=== PATIENT | male | born 1995 | race Caucasian/White ===

== ENCOUNTER 2018-03-14 19:14 | Inpatient (IN) | payer BC, OTHER ==
[~2018-03-14] VITALS: Ht 185.4 cm; Wt 90.7 kg
--- NOTE | 2018-03-15 15:20 | NUR ---
PRE-ADMISSION Pt is a 22 yr old male, AA&Ox4. Pt is presenting himself to [facility] for heroin and meth use. Pt is noted with anxiety m/b restless legs and appears to be fearful. VS are 144/83, P 90, R 18, T 98.2, O2 98% and pt is c/o generalized body aches 02/01. Pt was seen by Dr. Dominique. Pt will be admitted to the 3rd unit. Will continue to f/u.
[2018-03-15 15:26] VITALS: BP 144/83
[2018-03-15] MEDS ORDERED: NICOTINE 14 MG/24HR PATCH TD PRN (15:30)
[2018-03-15] MEDS ORDERED: BUPRENORPHINE HCL 2 MG TAB.SUBL SL PRN (15:30)
[2018-03-15] MEDS ORDERED: LOPERAMIDE HCL 2 MG CAPSULE PO PRN ×2 (15:30)
[2018-03-15] MEDS ORDERED: CLONIDINE HCL 0.1 MG TABLET PO PRN (15:30)
[2018-03-15] MEDS ORDERED: LORAZEPAM 1 MG TABLET PO PRN (15:30)
[2018-03-15] MEDS ORDERED: ACETAMINOPHEN 325 MG TABLET PO PRN (15:30)
[2018-03-15] MEDS ORDERED: NEOMY/BACITRAC/POLYMI OINT 28.35 GM TUBE TOP PRN (15:30)
[2018-03-15] MEDS ORDERED: MIRALAX 17 GM POWD.PACK PO PRN (15:30)
[2018-03-15] MEDS ORDERED: ONDANSETRON ODT 4 MG TAB.RAPDIS SL PRN (15:30)
[2018-03-15] MEDS ORDERED: MAG HYDROX/AL HYDROX/SIMETH 30 ML LIQUID UDC PO PRN (15:30)
[2018-03-15] MEDS ORDERED: HYDROXYZINE PAMOATE 25 MG CAPSULE PO PRN (15:30)
[2018-03-15] MEDS ORDERED: diphenhydrAMINE 50 MG CAPSULE PO PRN (15:30)
[2018-03-15] MEDS ORDERED: ONDANSETRON 4 MG/2 ML VIAL IM PRN (15:30)
[2018-03-15] MEDS ORDERED: NICOTINE POLACRILEX 4 MG GUM-PK OF TEN BC PRN (15:30)
[2018-03-15] MEDS ORDERED: TRAZ-147 PO (15:38)
[2018-03-15] MEDS ORDERED: ESCI10TA PO (15:38)
[2018-03-15 16:20] VITALS: BP 133/78
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
[2018-03-15 16:48] LABS: BASOPHILS % (AUTO) 0.3 % (0.0-2.0); EOSINOPHILS # (AUTO) 0.1 K/uL (0.0-0.7); EOSINOPHILS % (AUTO) 1.4 % (0.0-7.0); HEMATOCRIT 37.1 % (36.7-47.1); HEMOGLOBIN 12.9 g/dL (12.5-16.3); LYMPHOCYTES # (AUTO) 1.9 K/uL (20.0-40.0); LYMPHOCYTES % (AUTO) 34.9 % (20.5-51.5); MEAN CORPUSCULAR HEMOGLOBIN 30.4 uug (23.8-33.4); MEAN CORPUSCULAR HGB CONC 35 g/dL (32.5-36.3); MEAN CORPUSCULAR VOLUME 87.3 fL (73.0-96.2); MONOCYTES # (AUTO) 0.6 K/uL (2.0-10.0); MONOCYTES % (AUTO) 11.5 % (0.0-11.0); NEUTROPHILS # (AUTO) 2.8 K/uL (1.8-8.9); NEUTROPHILS % (AUTO) 51.9 % (38.5-71.5); PLATELET COUNT (AUTO) 230 K/uL (152-348); RED BLOOD CELL COUNT(AUTO) 4.25 MIL/uL (4.06-5.63); WHITE BLOOD COUNT (AUTO) 5.3 K/uL (3.6-10.2)
[2018-03-15 17:03] LABS: ETHANOL < 3 MG/DL (0-0)
[2018-03-15 17:06] LABS: ALANINE AMINOTRANSFERASE 53 U/L (16-63); ALKALINE PHOSPHATASE 82 U/L (50-136); ASPARTATE AMINOTRANSFERASE 33 U/L (15-37); BILIRUBIN,TOTAL 0.4 mg/dL (0.2-1.0); CARBON DIOXIDE 28 mmol/L (21-32); CHLORIDE 107 mmol/L (98-107); GLUCOSE 124 mg/dL (74-106); MAGNESIUM 1.9 mg/dL (1.8-2.4); POTASSIUM 3.6 mmol/L (3.5-5.1); TOTAL PROTEIN, SERUM 7.3 g/dL (6.4-8.2); UREA NITROGEN, BLOOD 12 mg/dL (7-18)
--- NOTE | 2018-03-15 19:21 | NUR ---
END OF SHIFT Pt is a 22 yr old male, AA&Ox4. pt is a new admit to [facility] for heroin and meth withdrawal and is to start on 5 day Subutex taper tonight. No PRN's were given during the day. Last COWS score was 9 at 1620. Pt is currently in bed sleeping with respirations even and unlabored. Skin is intact, warm and moist to touch. Safety precautions observed. Call light is within reach.
--- NOTE | 2018-03-15 19:30 | NUR ---
Start of Shift Note: Received patient from day shift nurse. Patient is a 22 y.o male admitted today 03/15/18 for medically supervised withdrawal from Heroin & Meth use. Patient received in bed with eyes closed. Patient appears disheveled and unkempt, pt noted in bed while his shoes were still on. Patient appears sedated, he is hard to arouse, does not respond to questions. Dinner tray noted at bedside table and untouched. Vitals taken and noted WNL. Skin color WNL and noted to be moist/clammy. Pt was placed on a Sbutex taper to be started tonight. Last COWS 9. No PRN medications given during day shift. Pt stable at this time. Will continue to closely monitor patient.
[2018-03-15 20:00] VITALS: BP 133/79
[2018-03-15] MEDS ORDERED: LORAZEPAM 1 MG TABLET PO SCH (21:00)
[2018-03-15] MEDS ORDERED: BUPRENORPHINE HCL 2 MG TAB.SUBL SL SCH (21:00)
[2018-03-16] VITALS: BP 105/66
--- NOTE | 2018-03-16 | NUR ---
COWS/CIWA deferred Patient is asleep. Vitals taken and noted WNL. Unable to assess COWS/CIWA scores at this time. Pt stable. Safety measures in place. Will continue to monitor. Addendum: 03/16/18 at 0714 by SIDDHARTH RAMOS RN Monitor COWS scores not CIWA
--- NOTE | 2018-03-16 | NUR ---
COWSdeferred Patient is asleep. Vitals taken and noted WNL. Unable to assess COWS scores at this time. Pt stable. Safety measures in place. Will continue to monitor.
[2018-03-16 04:00] VITALS: BP 108/54
--- NOTE | 2018-03-16 07:09 | NUR ---
End of Shift Note Patient is a 22 y.o male admitted yesterday 03/15/18 for medically supervised withdrawal from Opiates & Meth. Patient stable at this time. Patient has been asleep the whole night. Subutex taper hasnt started yet. Pt did not received scheduled medications and PRNs d/t pt was hard to arouse and appears sedated. Pt is closely monitored for s/s of withdrawal. Vitals noted WNL. Pt still asleep in bed at this time. Respiration even & unlabored. Pt only drank 200ml of fluids, Voided once with no bowel movement noted. Pt slept for a total of 12 hours. All needs were attended. Safety measures in place. Will endorse pt to day shift nurse.
--- NOTE | 2018-03-16 07:30 | NUR ---
START OF SHIFT Pt is a 22 yr old male, AA&Ox4. Pt was admitted on 03/15/18 for heroin and meth withdrawal and is on a 5 day Subutex taper as ordered. Received report from shift lab technician. No PRN's were given during the night. Pt slept for 12 hrs and was not able to be assessed for COWS score during the night. Pt remains in bed sleeping with respiration even and unlabored. Pt is noted with facial sweats. Skin is warm and moist to touch and noted with goose flesh. Pt's finger nails and hands remain dirty. Safety precautions observed. Call light is within reach. Will continue to monitor.
[2018-03-16 08:12] VITALS: BP 128/84
[2018-03-16] MEDS ORDERED: TUBERCULIN,PURIF.PROT.DERIV. 5 TU/0.1 ML TEST ID ONE (09:00)
[2018-03-16] MEDS: ESCITALOPRAM OXALATE 10 MG TABLET PO SCH (09:45)
[2018-03-16] MEDS ORDERED: TRAZODONE 100 MG TABLET PO PRN (09:45)
[2018-03-16] MEDS: BUPRENORPHINE HCL 2 MG TAB.SUBL SL SCH ×3 (10:00→20:38)
--- NOTE | 2018-03-16 10:36 | NUR ---
MEDICATION REFUSED Pt refused to take Subutex 4mg SL, Lexapro 10mg PO and TB skin test scheduled at 0900. Pt is noted with restlessness, sweats and goose flesh. Pt was educate by both nurse and by Dr. Dominique on the importance of medication regimen but pt continued to refused stating "I'm not ready". Will continue to monitor.
[2018-03-16] MEDS: DICYCLOMINE HCL 20 MG TABLET PO PRN ×2 (11:25→20:38)
[2018-03-16] MEDS: METHOCARBAMOL 750 MG TABLET PO PRN ×2 (11:25→20:38)
[2018-03-16] MEDS: IBUPROFEN 600 MG TABLET PO PRN (11:25)
--- NOTE | 2018-03-16 11:25 | NUR ---
PRN GIVEN Pt was c/o increase anxiety. pt was noted with restless legs, sweats and goose flesh. Pt is c.o generalize body aches and abdominal cramping. COWS score was 15. Pt received Subutex 4mg SL PRN, Motrin 600mg PO PRN, Robaxin 750mg PO PRN, and Bentyl 20mg PO PRN was given as ordered for s/s of w/d. Medication was bella well. Encouraged increase fluid intake for hydration. Will continue to monitor.
[2018-03-16 11:48] LABS: *AMPHETAMINE, URINE POSITIVE (NEGATIVE); *BARBITURATE, URINE NEGATIVE (NEGATIVE); *CANNABINOID, URINE POSITIVE (NEGATIVE); *COCCAINE, URINE NEGATIVE (NEGATIVE); *OPIATE, URINE POSITIVE (NEGATIVE); *PHENCYCLIDINE SCREEN,URINE NEGATIVE (NEGATIVE)
[2018-03-16 12:00] VITALS: BP 127/73
--- NOTE | 2018-03-16 12:00 | NUR ---
PRN RE-ASSESSMENT Subutex 4mg SL PRN, Motrin 600mg PO PRN, Robaxin 750mg PO PRN and Bentyl 20mg PO PRN was mildly effective. Pt continues to state he feels "like shit". Pt denies any stomach aches. Pt continues to c/o body aches but states the medication was mildly effective. COWS score was 11. Encouraged increase fluids for hydration. Will continue to monitor.
[2018-03-16 16:00] VITALS: BP 122/71
--- NOTE | 2018-03-16 18:52 | NUR ---
END OF SHIFT Pt is a 22 yr old male, AA&Ox4. Pt was admitted on 03/15/18 for heroin and meth withdrawal and is on a 5 day Subutex taper as ordered. Pt has been noted with increase anxiety m/b difficulty staying still. Pt c/o generalized body aches, sweats, chills and abdominal cramping. Pt received Bentyl 20mg PO PRN, Motrin 600mg PO PRN, Robaxin 750mg PO PRN and Subutex 4mg SL PRN at 1125. Medication was effective. Pt was encouraged increase fluid intake for hydration. Pt appearance was noted disheveled and odorous. Pt did take a shower a shower in the late afternoon. Last COWS score was 13 at 1600. Safety precautions observed. Call light is within reach.
--- NOTE | 2018-03-16 19:30 | NUR ---
START OF SHIFT Pt is a 22 yr old male,A/A/O X 3, admitted on 03/15/18 for heroin and meth withdrawal.Pt continues to be on Subutex taper as ordered and has been tolerating well.Pt noted with increase anxiety,appears anxious.restless,c/o generalized body aches, sweats, chills and abdominal cramping. Pt received PRN Bentyl , Motrin, Robaxin and Subutex 4mg during the day and was effective.Pt encouraged increase fluid intake. Last COWS score was 13 at 1600. Safety precautions observed. Call light is within reach.Will continue to monitor.
[2018-03-16 20:00] VITALS: BP 131/80
--- NOTE | 2018-03-16 20:40 | NUR ---
PRN MEDS PT C/O ANXIETY,CHILLS.MUSCLE AND ABDOMINAL PAIN.PRN CLONIDINE,ROBAXIN AND BENTYL GIVEN ORDERED RESPECTIVELY.WILL MONITOR FOR EFFECTIVENESS.
--- NOTE | 2018-03-16 21:40 | NUR ---
PRN F/U PRN MEDS GIVEN EARLIER ARE MODERATELY EFFECTIVE.PT IS STILL ANXIOUS,LOOKS SLEEPY BUT RESTLESS.PRN MED OFFERED FOR INSOMNIA BUT PT REFUSED TO TAKE IT,STATED IT DOES NOT WORK.SEEN LYING IN BED.WILL CONTINUE TO MONITOR.
--- NOTE | 2018-03-17 | NUR ---
COWS/CIWA deferred/V/S refused. Patient is asleep.Refused V/S. Unable to assess COWS/CIWA at this time. Safety measures in place. Will continue to monitor.
[2018-03-17] MEDS: MAGNESIUM HYDROXIDE 30 ML LIQUID UDC PO PRN (02:39)
--- NOTE | 2018-03-17 02:42 | NUR ---
PRN MED PT C/O ABDOMINAL PAIN,STATED THAT HE HAS NOT HAD A BOWEL MOVEMENT FOR 4 DAYS.PRN MOM GIVEN ORDERED.PO FLUIDS ENCOURAGED.WILL MONITOR.
[2018-03-17] MEDS ORDERED: KETOROLAC TROMETHAMINE 30 MG INJ IM ONE (02:45)
--- NOTE | 2018-03-17 02:56 | NUR ---
TORADOL IM ONE TIME ORDER-- PT CONTINUES TO C/O ABDOMINAL PAIN,MOANING IN PAIN,GRASPING PAIN SITE,PAIN LEVEL IS 10/10.PT REFUSED TO TAKE ANY PO PRN MEDICATIONS STATED THAT THEY DON'T HELP. NOTIFIED.TORADOL IM GIVEN ORDERED IN LEFT GLUTEAL MUSCLE.WILL CONTINUE TO MONITOR FOR EFFECTIVENESS.
--- NOTE | 2018-03-17 03:00 | NUR ---
PT IS RESTING IN BED WITH EYES CLOSED.TORADOL IM HAS BEEN EFFECTIVE IN DECREASING PAIN LEVEL.PAIN LEVEL IS 3/10.
--- NOTE | 2018-03-17 04:00 | NUR ---
COWS/CIWA deferred/V/S refused. Patient is asleep.Refused V/S. Unable to assess COWS/CIWA at this time. Safety measures in place. Will continue to monitor.
--- NOTE | 2018-03-17 06:48 | NUR ---
END OF SHIFT Pt is a 22 yr old male,A/O X 3, admitted on 03/15/18 for heroin and meth withdrawal.Pt continues to be on Subutex taper as ordered and has been tolerating well.Pt was noted with increase anxiety,appeared anxious.restless,c/o generalized body aches, sweats, chills and abdominal cramping. Pt received PRN Bentyl , Clonidine and Robaxin during the night and was effective.One time order of Toradol IM was given for abdominal pain with moderate effect.PRN MOM was given for constipation; result still pending. Pt encouraged to increase fluid intake.Pt slept 9 hrs,fluid intake was 1754 mls,voided x 4,no B/M. Last COWS score was 12. Safety precautions observed. Call light is within reach.Will continue to monitor.
--- NOTE | 2018-03-17 07:30 | NUR ---
START OF SHIFT Pt is a 22 yr old male, AA&Ox4. Pt was admitted on 03/15/18 for heroin and meth withdrawal and is on a 5 day Subutex taper as ordered. Received report from hourly shift manager. Pt c/o abdominal cramping during the night and received Bentyl PRN and Robaxin PRN, medication was not effective and received report Toradol IM PRN and MOM for constipation. Toradol PRN was effective. Pt slept for 9 hrs. Last COWS score was 12. No BM was reported. Pt remains in bed sleeping with respiration even and unlabored. Skin is warm and moist to touch. Safety precautions observed. Call light is within reach. Will continue to monitor.
[2018-03-17 08:00] VITALS: BP 116/80
[2018-03-17] MEDS: ESCITALOPRAM OXALATE 10 MG TABLET PO SCH (08:54)
[2018-03-17] MEDS: IBUPROFEN 600 MG TABLET PO PRN (08:54)
--- NOTE | 2018-03-17 08:54 | NUR ---
PRN GIVEN Pt c/o abdominal pain and lower back pain /. Facial grimacing is observed. Pt is noted with flat affect and avoidant. Pt requested not to take the Subutex at this time, pt states "I think the Subutex is making my stomach hurt". Bentyl 20mg PO PRN was offered but pt refused, stating "I don't want to take any more medications". Pt was educated on disease process and medication regimen. Pt is passive and need further education on medication regimen. Pt requested for Motrin. Motrin 600mg PO PRN was given at 0854 for pain 05/04. Encouraged increase fluid intake for hydration. Will continue to monitor.
[2018-03-17] MEDS ORDERED: BUPRENORPHINE HCL 2 MG TAB.SUBL SL SCH ×2 (09:00→15:00)
--- NOTE | 2018-03-17 09:38 | NUR ---
NSG NOTES Pt agreed to take Subutex 4mg SL as scheduled at 0900 but states he is fearful it would make him worse. Pt was educated on the importance of Subutex and the risk and benefits. Pt was able to verbalize understanding. Pt states of wanting to swallow the Subutex because he has "cotton mouth" and was observed drinking Dr. Farrell. Pt was encouraged to drink more water instead sugar drinks to help with hydration. Pt verbalizes understanding. Will continue to monitor.
--- NOTE | 2018-03-17 09:59 | NUR ---
PRN RE-ASSESSMENT Motrin 600mg PO PRN was mildly effective. Pt continue to c/o abdominal cramping and lower back pain but pain level subsided to 3/10. Facial grimacing is observe. Will continue to monitor.
[2018-03-17 12:00] VITALS: BP 99/57
[2018-03-17] MEDS ORDERED: KETOROLAC TROMETHAMINE 30 MG INJ IM PRN (12:15)
[2018-03-17 13:07] LABS: HEPATITIS B SURFACE AG Negative (Negative)
[2018-03-17] MEDS: BUPRENORPHINE HCL 2 MG TAB.SUBL SL SCH ×4 (13:08→22:37)
[2018-03-17] MEDS: DICYCLOMINE HCL 20 MG TABLET PO SCH ×2 (14:27→22:07)
[2018-03-17 16:00] VITALS: BP 111/60
--- NOTE | 2018-03-17 17:05 | NUR ---
NSG NOTES/PRN GIVEN/MEDICATION REFUSED Pt was observed scratching profusely throughout his body and his skin was noted red. Pt states of feeling itchy after getting Subutex but states he is able to tolerate Subutex. Vistaril 25mg PO PRN was given for anxiety/itchiness. Pt also refused to take Subutex 2mg SL as scheduled at 1700 stating he will take the 2100 dose. Risks and benefits was explained. Pt was passive and needs further education on medication regimen. Dr. Dominique was made aware.
--- NOTE | 2018-03-17 18:05 | NUR ---
PRN RE-ASSESSMENT Vistaril 25mg PO PRN was effective. Pt is currently in bed resting wtih respirations even and unlabored. Pt is not observed scratching. Will continue to monitor.
--- NOTE | 2018-03-17 19:02 | NUR ---
END OF SHIFT Pt is a 22 yr old male, AA&Ox4. Pt was admitted on 03/15/18 for heroin and meth withdrawal and is on a 5 day Subutex taper as ordered. Pt has been noted with increase anxiety m/b difficulty staying still. Pt was noted with facial sweats. Pt was observed scratching profusely throughout his body and was noted red. Pt states of feeling itchy after getting Subutex but states he is able to tolerate Subutex. Vistaril 25mg PO PRN was given for anxiety/itchiness, medication was effective. Dr. Dominique was made aware. Pt also refused to take Subutex 2mg SL as scheduled at 1700. Pt received Motrin 600mg PO PRN for lower back pain and abdominal cramping, medication was effective. Pt was encouraged increase fluid intake for hydration. Last COWS score was 11 at 1600. Safety precautions observed. Call light is within reach.
--- NOTE | 2018-03-17 19:30 | NUR ---
START OF SHIFT Pt is a 22 yr old male, AA&Ox4. Pt was admitted on 03/15/18 for heroin and meth withdrawal and is on Subutex taper as ordered.Pt received lying in bed,lethargic,dishevelled and unkempt,noted to be sleeping intermittently and scratching himself.Pt encouraged to get up and shower and use lotion,but is does not want to,stated "I took a shower yesterday,I am itching because of Subutex". Vistaril 25mg PO PRN was given for anxiety/itchiness, medication was effective. Dr. Dominique was made aware. Pt also refused to take Subutex 2mg SL as scheduled at 1700. Pt received Motrin 600mg PO PRN for lower back pain and abdominal cramping, medication was effective. Pt encouraged increase fluid intake for hydration. Last COWS score was 11 at 1600. Safety precautions observed. Call light is within reach.Will continue to monitor.
[2018-03-17 20:00] VITALS: BP 111/50
[2018-03-17] MEDS ORDERED: diphenhydrAMINE 25 MG CAP PO PRN (21:00)
[2018-03-17] MEDS: GABAPENTIN 300 MG CAPSULE PO SCH (22:07)
[2018-03-17] MEDS: BACLOFEN 10 MG TABLET PO SCH (22:07)
[2018-03-17] MEDS: CLONIDINE HCL 0.1 MG TABLET PO SCH (22:10)
[2018-03-18] VITALS: BP 115/67
[2018-03-18 04:00] VITALS: BP 131/77
--- NOTE | 2018-03-18 06:49 | NUR ---
END OF SHIFT Pt is a 22 yr old male, A&Ox4. Pt was admitted on 03/15/18 for heroin and meth withdrawal and is on Subutex taper as ordered.Pt has been sleeping most of time, he slept 10 hrs , fluid intake was 1375 mls, voided x 2.Pt c/o back pain but refused to take any pain medication when offered. Said that he just wants to sleep.At first he refused to take Subutex at 2100,said that it makes him itch but finally ended taking it.PO fluids encouraged. Last COWS score was 7 at 0400. Safety precautions observed. Call light is within reach.Will continue to monitor.
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
[2018-03-18 08:22] VITALS: BP 148/94
[2018-03-18] MEDS: ESCITALOPRAM OXALATE 10 MG TABLET PO SCH (09:58)
[2018-03-18] MEDS: BUPRENORPHINE HCL 2 MG TAB.SUBL SL SCH ×3 (09:58→22:40)
[2018-03-18] MEDS: GABAPENTIN 300 MG CAPSULE PO SCH ×3 (09:59→22:40)
[2018-03-18] MEDS: DICYCLOMINE HCL 20 MG TABLET PO SCH ×3 (09:59→22:38)
[2018-03-18] MEDS: CLONIDINE HCL 0.1 MG TABLET PO SCH ×3 (09:59→22:39)
[2018-03-18] MEDS: BACLOFEN 10 MG TABLET PO SCH ×3 (09:59→22:40)
[2018-03-18 12:26] VITALS: BP 109/57
[2018-03-18 16:55] VITALS: BP 129/74
[2018-03-18] MEDS: IBUPROFEN 600 MG TABLET PO PRN (17:17)
--- NOTE | 2018-03-18 17:17 | NUR ---
PRN Motrin Pt complain of tooth ache pain 5/10 and requests Motrin for pain relief. Fixture Fabricator Repairer administered medication per order and pt tolerated well. Will continue to monitor, support and encourage according to plan of care.
--- NOTE | 2018-03-18 18:17 | NUR ---
PRN Re-Assessment Pt resting with eyes closed, even and unlabored respirations. Will continue to monitor, support and encourage according to plan of care.
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
--- NOTE | 2018-03-18 19:30 | NUR ---
START OF SHIFT Received 22 year old male patient admitted on 03/15/18 for Heroin and Methamphetamine withdrawal. Pt is alert and oriented x4. Pt noted to be withdrawn and isolated to his room. Pt is disheveled, unkempt and odorous. His room is odorous with garbage around the room. He is noted with poor eye contact, irritability, and flat affect. He is receiving a 5 day Subutex taper and tolerating well. Per endorsement, he received PRN Motrin. Last COWS:8 at 1600. Breathing is even and unlabored, safety measures in place. Will continue to monitor.
[2018-03-18 20:07] VITALS: BP 116/62
--- NOTE | 2018-03-19 | NUR ---
VITALS REFUSED, COWS DEFERRED 0000 vitals refused. COWS deferred d/t pt lying in bed with eyes closed noted to be asleep. Breathing is even and unlabored, safety measures in place. Will monitor.
--- NOTE | 2018-03-19 04:00 | NUR ---
VITALS REFUSED, COWS DEFERRED 0400 vitals refused. COWS deferred d/t pt lying in bed with eyes closed noted to be asleep. Breathing is even and unlabored, safety measures in place. Will monitor.
--- NOTE | 2018-03-19 07:04 | NUR ---
START OF SHIFT Pt is a 22 year old male patient admitted on 03/15/18 for Heroin and Methamphetamine withdrawal. He remains alert and oriented x4. He was noted to be withdrawn and isolated to his room. He had complaints of anxiety, and irritability during the shift. He continues on a 5 day Subutex taper and tolerating well. He did not receive or request PRN medications. He slept a total of 8 hrs, Intake: 1,700mL, Void: x2, BM:0, COWS: 8 at 1999. Breathing is even and unlabored, safety measures in place. Will endorse to AM shift. Addendum: 03/19/18 at 0706 by ISABEL RICHARDS RN ERROR IN CHARTING
--- NOTE | 2018-03-19 07:06 | NUR ---
END OF SHIFT Pt is a 22 year old male patient admitted on 03/15/18 for Heroin and Methamphetamine withdrawal. He remains alert and oriented x4. He was noted to be withdrawn and isolated to his room. He had complaints of anxiety, and irritability during the shift. He continues on a 5 day Subutex taper and tolerating well. He did not receive or request PRN medications. He slept a total of 8 hrs, Intake: 1,700mL, Void: x2, BM:0, COWS: 8 at 2000. Breathing is even and unlabored, safety measures in place. Will endorse to AM shift.
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
[2018-03-19 08:30] VITALS: BP 114/50
[2018-03-19] MEDS: ESCITALOPRAM OXALATE 10 MG TABLET PO SCH (09:02)
[2018-03-19] MEDS: BUPRENORPHINE HCL 2 MG TAB.SUBL SL SCH ×2 (09:02→21:28)
[2018-03-19] MEDS: DICYCLOMINE HCL 20 MG TABLET PO SCH ×3 (09:02→21:28)
[2018-03-19] MEDS: BACLOFEN 10 MG TABLET PO SCH ×3 (09:02→21:28)
[2018-03-19] MEDS: CLONIDINE HCL 0.1 MG TABLET PO SCH ×3 (09:02→21:28)
[2018-03-19] MEDS: GABAPENTIN 300 MG CAPSULE PO SCH ×3 (09:02→21:28)
[2018-03-19 12:49] VITALS: BP 130/79
[2018-03-19] MEDS ORDERED: CLON0.1T14 PO (12:58)
[2018-03-19] MEDS ORDERED: HYDR-3895 PO (12:58)
[2018-03-19] MEDS ORDERED: DIPH25TA27 PO (12:58)
[2018-03-19] MEDS ORDERED: DICY20TA28 PO (12:58)
[2018-03-19] MEDS ORDERED: METH-406 PO (12:58)
[2018-03-19] MEDS ORDERED: GABA-534 PO (12:58)
[2018-03-19] MEDS ORDERED: IBUP-1955 PO (12:58)
[2018-03-19 16:58] VITALS: BP 108/68
[2018-03-19] MEDS: OLANZAPINE ZYDIS 5 MG TAB.RAPDIS PO SCH (17:00)
[2018-03-19] MEDS: DIVALPROEX SPRINKLE 125 MG CAP.SPRINK PO SCH (17:00)
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
--- NOTE | 2018-03-19 19:16 | NUR ---
Start of shift note Received report from day shift nurse. Pt is a 22 yo male, A+Ox4, presenting to [facility] for Opiate/Meth withdrawal. Pt noted to be anxious, restless, agitated, and having messy/odorous room/body. Pt is on 5 day Subutex taper, tolerated well. Pt has HX of ADHD, Anxiety, Depression, and back injury which will be monitored during shift. Respirations even and unlabored. Will continue to monitor.
[2018-03-19 20:10] VITALS: BP 137/82
[2018-03-20 00:17] VITALS: BP 132/84
[2018-03-20 04:39] VITALS: BP 129/87
--- NOTE | 2018-03-20 06:45 | NUR ---
End of shift note Pt was continuously noted to be anxious, withdrawn, having messy/odorous room/body, and restless. Pt is 5 day Subutex taper, tolerated well. Pt remained in room for majority of shift except to get food from kitchen and to go smoke on smoking patio. Pt was not given any PRN medications during shift. Pt slept for a total of 9 HRS. Last COWS: 9 @0400. Respirations even and unlabored. Will endorse to day shift nurse.
--- NOTE | 2018-03-20 07:49 | NUR ---
BEGINNING OF SHIFT Patient endorsement report received from nightclub manager nurse, all pertinent information discussed. Patient is a 22 year old male with admitting Dx: Opiate withdrawal. Patient is Currently under close observation, patient continues on Subutex taper as ordered. patient with last cow score of: 9. slept for 9 hours. Fall and seizure precautions observed at all times. Patient awake, alert and oriented x4, will educated regarding plan of care for the day, and medication regimen. Patient received No PRNs during nightclub manager. fall and seizure precautions observed and in place. will continue to monitor closely. safety measures in place.
[2018-03-20 08:03] VITALS: BP 106/64
[2018-03-20] MEDS ORDERED: BUPRENORPHINE HCL 2 MG TAB.SUBL SL SCH (09:00)
[2018-03-20] MEDS: DIVALPROEX SPRINKLE 125 MG CAP.SPRINK PO SCH ×2 (09:00→12:41)
[2018-03-20] MEDS: OLANZAPINE ZYDIS 5 MG TAB.RAPDIS PO SCH (09:00)
[2018-03-20] MEDS: CLONIDINE HCL 0.1 MG TABLET PO SCH ×3 (09:27→20:49)
[2018-03-20] MEDS: ESCITALOPRAM OXALATE 10 MG TABLET PO SCH (09:27)
[2018-03-20] MEDS: DICYCLOMINE HCL 20 MG TABLET PO SCH ×3 (09:27→20:49)
[2018-03-20] MEDS: GABAPENTIN 300 MG CAPSULE PO SCH ×3 (09:28→20:49)
[2018-03-20] MEDS: BACLOFEN 10 MG TABLET PO SCH ×3 (09:28→20:49)
[2018-03-20 12:58] VITALS: BP 131/71
[2018-03-20 17:28] VITALS: BP 118/77
--- NOTE | 2018-03-20 18:58 | NUR ---
END OF SHIFT Patient alert and oriented x4, monitored closely during shift. Patient has a worried, and anxious facial expression. Patient at times with increase anxiety, restlessness, and agitation, provided with calming reassurance as needed along with non pharmacological interventions as needed. Patient noted odorous, unshaven and disheveled, encouraged personal grooming and maintenance of personal space and self. Patient presented with: c/o chills, difficulty sitting still, enlarged pupils, bone and joint aches, moist eyes, abdominal cramps, tremors that can be felt, increase yawning, and anxiety, initial cow score of: 10, last cow score of: 7, detox medication effective at reducing withdrawal symptoms. Patient is scheduled to be discharged tomorrow morning, received last dose of Subutex during the day, well tolerated. Patient refusing Zyprexa and Depakote, psychiatrist was made aware, patient was explained risk vs benefits with good verbal understanding. Patient received no PRN medication during shift. Patient encouraged participation in therapy sessions, patient denies any SI/HI, Patient was encouraged to verbalize feelings, encouraged to develop coping skills and utilization of non pharmacological interventions. Patients safety measures are in place. call light kept within reach, will continue to monitor. Endorsed to rug inspector nurse, all pertinent information discussed.
--- NOTE | 2018-03-20 19:10 | NUR ---
Start of shift note Received report from day shift nurse. Pt is a 22 yo male, A+Ox4, presenting to [facility] for Opiate/Meth withdrawal. Pt noted to be anxious, agitated, restless, and having messy room. Pt has completed 5 day Subutex taper, tolerated well, and is due for discharger tomorrow. Pt has HX of ADHD, anxiety, depression, and back injury which will be monitored during shift. Respirations even and unlabored. Will continue to monitor.
[2018-03-20 20:23] VITALS: BP_SYST 127; BP_SYST 131; BP_DIAS 80; BP_DIAS 82
[2018-03-20] MEDS: DICYCLOMINE HCL 20 MG TABLET PO PRN (23:10)
[2018-03-20] MEDS: MAGNESIUM HYDROXIDE 30 ML LIQUID UDC PO PRN (23:12)
--- NOTE | 2018-03-20 23:12 | NUR ---
PRN Bentyl and MOM Pt c/o abdominal cramps and constipation and requested for PRN Bentyl and MOM. Medications given and tolerated well. Will reassess within 1 HR. Will continue to monitor.
--- NOTE | 2018-03-21 00:10 | NUR ---
PRN Bentyl and MOM Reassessment PRN Bentyl effective. Pt expresses reduction in abdominal cramping. Still awaiting effectiveness of MOM. No s/s of ASE noted at this time. Respirations even and unlabored. Will continue to monitor.
[2018-03-21 00:21] VITALS: BP 127/74
[2018-03-21 04:19] VITALS: BP 129/78
--- NOTE | 2018-03-21 06:43 | NUR ---
End of shift note Pt was continuously noted with anxiety, agitation, restlessness, abdominal cramping, and constipation. Pt remained in room for majority of shift except to get food from kitchen, to go smoke on smoking patio, and to interact with others in recreational room. Pt has completed 5 day Subutex taper and is due for discharge tomorrow. Pt was given PRN Bentyl and MOM @2312. Pt slept for a total of 6 HRS. Last COWS: 5 @0400. Respirations even and unlabored. Will endorse to day shift nurse.
--- NOTE | 2018-03-21 07:55 | NUR ---
START OF SHIFT: RECEIVED PT A/O X 4. HE PRESENTS WITH BLUNTED AFFECT AND DEPRESSED MOOD. HE DENIES S/I AND H/I. HE REPORTS SOME BODY ACHES AND RESTLESSNESS. COWS 4. SUBUTEX TAPER COMPLETED YESTERDAY. DISCHARGE PLANNING IN PROGRESS FOR THIS AM. WILL MEDICATE ORDERED.
[2018-03-21 08:00] VITALS: BP 127/76
[2018-03-21] MEDS: ESCITALOPRAM OXALATE 10 MG TABLET PO SCH (09:06)
[2018-03-21] MEDS: DICYCLOMINE HCL 20 MG TABLET PO SCH (09:06)
[2018-03-21 09:07] VITALS: BP 127/76
[2018-03-21] MEDS: GABAPENTIN 300 MG CAPSULE PO SCH (09:07)
[2018-03-21] MEDS: CLONIDINE HCL 0.1 MG TABLET PO SCH (09:07)
[2018-03-21] MEDS: BACLOFEN 10 MG TABLET PO SCH (09:07)
--- NOTE | 2018-03-21 09:55 | NUR ---
DISCHARGE: PT IS A/O X 4. HE DENIES S/I AND H/I. HE STATES HE FEELS ENTHUSIASTIC TOWARD RECOVERY. BELONGINGS RETURNED. EDUCATED PT ON DISCHARGE MEDS AND INSTRUCTIONS. PT EXPRESSED VERBAL UNDERSTANDING OF EDUCATION . TRUST EVALUATION SUPERVISOR ESCORTED PT TO [facility] WHERE HE WAS TRANSPORTED BY [facility] TO [facility] AT 0947.
== END 2018-03-21 09:47 | disposition other institution (70) | DRG 895 ==
LOC: SRC 03-15 14:28
PROVIDERS: ADMIT Internal Medicine; ATTEND Internal Medicine
PROC: HZ2ZZZZ Detoxification Services for Substance Abuse Treatment (ICD-10-PCS; principal; 2018-03-15)
PROC: HZ41ZZZ Group Counseling for Substance Abuse Treatment, Behavioral (ICD-10-PCS; 2018-03-19)
DX: F11.23 Opioid dependence with withdrawal (principal); Z86.74 Personal history of sudden cardiac arrest; I15.9 Secondary hypertension, unspecified; F33.1 Major depressive disorder, recurrent, moderate; Z59.1 Inadequate housing; Z59.0 Homelessness; F17.210 Nicotine dependence, cigarettes, uncomplicated; G47.00 Insomnia, unspecified; Z82.49 Family history of ischemic heart disease and other diseases of the circulatory system; Z79.899 Other long term (current) drug therapy; F90.9 Attention-deficit hyperactivity disorder, unspecified type; Z91.89 Other specified personal risk factors, not elsewhere classified; F15.23 Other stimulant dependence with withdrawal; F12.90 Cannabis use, unspecified, uncomplicated
CPT/HCPCS: 36415; 70030-TC; 80307; 80324; 80349; 80361; 83735; 85025; 86592; 86705; 86803; 87340; 87806; G0480; J1885

== ENCOUNTER 2018-04-09 18:32 | Inpatient (IN) | payer BC, OTHER ==
[~2018-04-09] VITALS: Ht 188 cm; Wt 90.7 kg
[~2018-04-09 18:32] MED LIST: CLON0.1T14 PO; DICY20TA28 PO; DIPH25TA27 PO; ESCI10TA PO; GABA-534 PO; HYDR-3895 PO; IBUP-1955 PO; METH-406 PO; TRAZ-147 PO
--- NOTE | 2018-04-09 22:00 | NUR ---
Intake Assessment Px seen in the intake office. Px is A&Ox4. Px is ambulatory with steady gait. Speech is clear and audible. Px appears disheveled, unshaven, odorous with long/dirty fingernails. Px is anxious but cooperative during interview. Px has poor eye contact. VS are as follows BP= 125/77, NM=99, RR= 18, T= 97.5, O2sat= 97% on RA and no pain at the moment. Px is here for medically supervised withdrawal from Heroin. Px denies any seizure hx. Px has NKA as reported. Px didn't bring any home medications. Admission process will continue in the unit.
[2018-04-09] MEDS ORDERED: MAG HYDROX/AL HYDROX/SIMETH 30 ML LIQUID UDC PO PRN (22:15)
[2018-04-09] MEDS ORDERED: LOPERAMIDE HCL 2 MG CAPSULE PO PRN ×2 (22:15)
[2018-04-09] MEDS ORDERED: METHOCARBAMOL 750 MG TABLET PO PRN (22:15)
[2018-04-09] MEDS ORDERED: BUPRENORPHINE HCL 2 MG TAB.SUBL SL PRN (22:15)
[2018-04-09] MEDS ORDERED: CLONIDINE HCL 0.1 MG TABLET PO PRN (22:15)
[2018-04-09] MEDS ORDERED: ONDANSETRON 4 MG/2 ML VIAL IM PRN (22:15)
[2018-04-09] MEDS ORDERED: DICYCLOMINE HCL 20 MG TABLET PO PRN (22:15)
[2018-04-09] MEDS ORDERED: HYDROXYZINE PAMOATE 25 MG CAPSULE PO PRN (22:15)
[2018-04-09] MEDS ORDERED: diphenhydrAMINE 50 MG CAPSULE PO PRN (22:15)
[2018-04-09] MEDS ORDERED: MIRALAX 17 GM POWD.PACK PO PRN (22:15)
[2018-04-09] MEDS ORDERED: ONDANSETRON ODT 4 MG TAB.RAPDIS SL PRN (22:15)
[2018-04-09] MEDS ORDERED: MAGNESIUM HYDROXIDE 30 ML LIQUID UDC PO PRN (22:15)
--- NOTE | 2018-04-09 22:20 | NUR ---
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 Px is currently experiencing withdrawals. Px appears disheveled, unkempt, unshaven, odorous with long/dirty fingernails. Px is homeless. Px is anxious but cooperative during interview. Px has good eye contact. Px is A&Ox4. Speech is clear and audible. Px states he experiences the following during withdrawal, anxiety, sweats, chills, muscle aches, diarrhea, abdominal cramping, restlessness, n/v. Px denies any hx of withdrawal-induced seizures. Px states current substance use as follows: 1. Heroin- 0.5 to 2 G IV daily for 2 weeks, last use was 04/08/2018 of 0.25 G IV 2. Methamphetamine- 3.5 G IV daily for 2 weeks, last use 04/09/2018 of 0.5 G IV Px states that he is seeking tx today by his own will, nobody help him or encouraged him to come here in [facility]. Px states "I want to be well. It is time to be cured or . I am tired of this." Px had been in 3 txs already where the last was here in [facility]. Px relapsed 2 weeks ago due to some people that encouraged him to use. Px added "I just need to open my eyes and focused." Px reported that his longest sobriety period was in 2014 to 2016. It was 2-3 years total. VS are as follows BP= 123/77, MD= 90, RR= 18, T= 98.3, O2sat= 99% on RA. Pulse is regular. Respirations are even and unlabored. Lung sounds are clear. Bowel sounds are active all over 4 quadrants. Open scab wound noted on right knee and leg. Photos taken and put to chart. Kaylah follows regular diet at home. Kaylah has NKA. Px's height is 6'2" and weighs 200 lbs. Px smokes an average of 2 cigarettes daily. Px doesn't have PCP. Px reported PMH of heart attack 3 years ago, HTN, asthma, anxiety, depression and Bipolar disorder. Px was educated about the plan of care including detox, group therapy, individual therapy and D/C planning. Px was encouraged to be open and honest for a fruitful and positive recovery.
[2018-04-09] MEDS: ACETAMINOPHEN 325 MG TABLET PO PRN (22:35)
--- NOTE | 2018-04-09 22:35 | NUR ---
PRN Tylenol Px complained of intermittent chest pain. VS are as follows 123/77, WY= 90, RR= 18, O2sat= 99% on RA and T= 98.3. Tylenol 325 mg/tab, 2 tabs given PO as PRN medication. We'll continue to monitor.
--- NOTE | 2018-04-09 23:35 | NUR ---
Reassessment of chest pain Px stated that he doesn't have chest pain anymore. 0.
[2018-04-10] VITALS: BP 137/78
--- NOTE | 2018-04-10 | NUR ---
Warm pack Px was given warm pack for knee pain of 6/10. We'll continue to monitor.
[2018-04-10 00:31] LABS: HEMATOCRIT 41.3 % (36.7-47.1); HEMOGLOBIN 14.5 g/dL (12.5-16.3); MEAN CORPUSCULAR HEMOGLOBIN 30.8 uug (23.8-33.4); MEAN CORPUSCULAR HGB CONC 35 g/dL (32.5-36.3); MEAN CORPUSCULAR VOLUME 87.7 fL (73.0-96.2); PLATELET COUNT (AUTO) 293 K/uL (152-348); RED BLOOD CELL COUNT(AUTO) 4.71 MIL/uL (4.06-5.63); WHITE BLOOD COUNT (AUTO) 6.1 K/uL (3.6-10.2)
[2018-04-10 00:32] LABS: BASOPHILS % (AUTO) 0.4 % (0.0-2.0); EOSINOPHILS # (AUTO) 0.1 K/uL (0.0-0.7); EOSINOPHILS % (AUTO) 2.1 % (0.0-7.0); LYMPHOCYTES # (AUTO) 1.9 K/uL (20.0-40.0); LYMPHOCYTES % (AUTO) 31.1 % (20.5-51.5); MONOCYTES # (AUTO) 0.4 K/uL (2.0-10.0); MONOCYTES % (AUTO) 7.3 % (0.0-11.0); NEUTROPHILS # (AUTO) 3.6 K/uL (1.8-8.9); NEUTROPHILS % (AUTO) 59.1 % (38.5-71.5)
[2018-04-10 00:49] LABS: ALANINE AMINOTRANSFERASE 50 U/L (16-63); ALKALINE PHOSPHATASE 80 U/L (50-136); ASPARTATE AMINOTRANSFERASE 54 U/L (15-37); BILIRUBIN,TOTAL 0.3 mg/dL (0.2-1.0); CARBON DIOXIDE 26 mmol/L (21-32); CHLORIDE 103 mmol/L (98-107); CREATININE 1.1 mg/dL (0.6-1.3); GLUCOSE 126 mg/dL (74-106); MAGNESIUM 1.8 mg/dL (1.8-2.4); POTASSIUM 3.5 mmol/L (3.5-5.1); TOTAL PROTEIN, SERUM 7.7 g/dL (6.4-8.2); UREA NITROGEN, BLOOD 15 mg/dL (7-18)
[2018-04-10 00:52] LABS: ETHANOL < 3 MG/DL (0-0)
--- NOTE | 2018-04-10 01:00 | NUR ---
Ice Bag Px was given ice bag for knee pain of 6/10. We'll continue to monitor.
[2018-04-10] MEDS: LORAZEPAM 1 MG TABLET PO PRN ×2 (01:51→10:19)
[2018-04-10] MEDS: IBUPROFEN 600 MG TABLET PO PRN ×2 (01:52→21:52)
--- NOTE | 2018-04-10 01:52 | NUR ---
PRN medications Px was given Motrin 600 mg/tab, 1 tab PO for knee pain of 6/10. Ativan 1 mg/tab, 2 tabs given PO for agitation and restlessness. Subutex 2 mg/tab, 2 tabs given SL for COWS of 13. We'll continue to monitor.
[2018-04-10 01:57] LABS: *AMPHETAMINE, URINE NEGATIVE (NEGATIVE); *BARBITURATE, URINE NEGATIVE (NEGATIVE); *CANNABINOID, URINE NEGATIVE (NEGATIVE); *COCCAINE, URINE NEGATIVE (NEGATIVE); *OPIATE, URINE NEGATIVE (NEGATIVE); *PHENCYCLIDINE SCREEN,URINE NEGATIVE (NEGATIVE)
--- NOTE | 2018-04-10 03:00 | NUR ---
Reassessment of knee pain Px stated that his knee pain improved from 6/10 to 2-3/10. We'll continue to monitor.
[2018-04-10 04:00] VITALS: BP 124/76
--- NOTE | 2018-04-10 04:00 | NUR ---
COWS deferred COWS deferred due to the px is asleep, to assess if the px is awake per doctor's order. We'll continue to monitor.
--- NOTE | 2018-04-10 07:15 | NUR ---
End of Shift Note During the shift at 2235, px received Tylenol 650 mg PO as PRN for chest pain. It was effective. Px had hard time giving urine for UDS. Finally around 0140, px gave urine for UDS. At 0151, Px received PRN medications such as Motrin 600 mg PO for knee pain, Ativan 2 mg PO for agitation and Subutex 4 mg SL for COWS 13. They were effective. Px's oral intake is 1,000 ml, voided 1x, No BM. Last COWS 11 and CIWA 10. Bed on lowest position, side rails up 2x and call light within reach. We'll continue to monitor. Px endorsed to AM shift nurse.
--- NOTE | 2018-04-10 07:30 | NUR ---
START OF SHIFT Rcvd endorse from ongoing nurse, client is in room, sitting on the floor, facing the window, incomprehensible talk, running his right hand up and down his face. several snack bags, closed bottle of soft drink, an orange juice scattered around his room. Client stated, "I don't know why I'm here, I don't think I fell." Assisted client to bed, noted with unsteady gait. Client is wearing a pair of scrub only, he is disheveled, odorous, with dirt on his hands, dark circles under eyes, clammy skin, he presents with depressed mood, flat affect, dilated pupils, difficulty opening eyes, and difficulty concentrating, client is alert to name, place and situation. Client reports feeling tired, hot, and sweaty, he stated, "Hey, maybe that's why I was on the cold floor, cause I was too hot." Client put on a shirt stating, "I'm putting on a shirt out of respect." Head to toe assessment, no new skin issues noted. Encourage client to increase PO fluid to facilitate detox. Encourage client to attend group therapy to learn skills to maintain sober. PRN administered overnight and noted per protocol. Client last COWS 11 @ 0230. Client slept 4 hrs. [place] precaution rendered. Call light within reach
--- NOTE | 2018-04-10 07:40 | NUR ---
MD notified and ordered 1:1 for safety.
[2018-04-10 08:00] VITALS: BP 103/73
--- NOTE | 2018-04-10 08:12 | NUR ---
PRN Zofran 4mg SL for emesis x 4, nausea.
--- NOTE | 2018-04-10 08:42 | NUR ---
Reassess PRN Zofran 4mg, client denies any more episodes of emesis. No more nausea.
[2018-04-10] MEDS ORDERED: TUBERCULIN,PURIF.PROT.DERIV. 5 TU/0.1 ML TEST ID ONE (09:00)
[2018-04-10] MEDS: GABAPENTIN 300 MG CAPSULE PO SCH ×3 (09:00→21:52)
[2018-04-10] MEDS: BUPRENORPHINE HCL 2 MG TAB.SUBL SL SCH ×3 (09:00→21:52)
[2018-04-10] MEDS ORDERED: TRAZODONE 100 MG TABLET PO PRN (09:45)
[2018-04-10] MEDS: ESCITALOPRAM OXALATE 10 MG TABLET PO SCH (10:19)
--- NOTE | 2018-04-10 10:19 | NUR ---
PRN Ativan 2mg PO administered for agitation/anxiety. Call light within reach
--- NOTE | 2018-04-10 11:19 | NUR ---
Reassess PRN Ativan 2mg, client is in bed, she appears to be asleep, RR 16, [id number]. Call light within reach
[2018-04-10 12:40] VITALS: BP 94/57
[2018-04-10 17:06] VITALS: BP 101/57
--- NOTE | 2018-04-10 19:20 | NUR ---
END OF SHIFT Endorse client to incoming nurse, client is in room, a/o x 4. Client continues to present with anxious mood, flat affect, clammy skin, goosebump, difficulty concentrating, anxiety, irritability, decreased appetite, and fatigue. Client continues to be on 1:1 sitetr for safety. 1200mL PO fluid intake, void x 2. Client consumes 50-75% of meals. PRN medications administered and noted per protocol. Client is not compliant with group therapy, encouragement needed. Last COWS 10 @ 1600. Seizure precaution rendered. Call light within reach
--- NOTE | 2018-04-10 19:40 | NUR ---
Start of Shift Note Received a 22 y/o male px, admitted for medically supervised withdrawal from Heroin and methamphetamine. Px is placed on 4 day Subutex taper started today, 04/10/2018. Last reported COWS 10 by AM shift nurse. Px is on 1 to 1 observation for unsteady gait. During the rounds at 1940, px is awake on bed sitting and about to take his dinner. Px appears, drowsy, disheveled, unshaven with dirty hands and finger nails. Px stated that his anxiety and 4/10 and he is depressed. Px also complained of back pain of 6/10. Bed on lowest position, side rails up 2x and call light within reach. We'll continue to monitor.
[2018-04-10 20:00] VITALS: BP 108/75
--- NOTE | 2018-04-10 21:52 | NUR ---
PRN Motrin Px was given Ibuprofen 600 mg/tab, 1 tab PO as PRN medication for back ache 05/04. To reassess after an hour. We'll continue to monitor.
--- NOTE | 2018-04-10 23:00 | NUR ---
Reassessment of backache Reassessment is deferred due to the px is asleep. We'll continue to monitor.
[2018-04-11] VITALS: BP 109/55
[2018-04-11 04:00] VITALS: BP 110/59
--- NOTE | 2018-04-11 04:00 | NUR ---
COWS deferred COWS deferred at 0000 and at 0400 due to the px is asleep, to assess if the px is awake per doctor's order. We'll continue to monitor.
--- NOTE | 2018-04-11 07:12 | NUR ---
End of Shift Note During the shift at 2100, beddings changed as requested by the px. At 2152, px received Motrin 600 mg PO as PRN medication for backache of 6/10. Reassessment was deferred due to the px was asleep after an hour of administration of Motrin. Px's oral intake is 400 ml, voided 1x, No BM. Last COWS 8. Px slept for 9 hours. Bed on lowest position, side rails up 2x and call light within reach. We'll continue to monitor. Px endorsed to AM shift nurse.
--- NOTE | 2018-04-11 07:45 | NUR ---
START OF SHIFT Rcvd endorse from ongoing nurse, Client is on 1:1 sitter for unsteady gait, client is in room, alert and oriented to name, place and situation. Client is disheveled, odorous, with dirt under fingernails, dark circles under eyes, clammy skin, he presents with anxious mood, flat affect, dilated pupils, and difficulty concentrating. Client stated, "I am feeling like shit." he reports cold/chills, sweating, constipation, abdominal cramps, and feeling tired. Encourage client to increase PO fluid to facilitate detox. Encourage client to attend group therapy to learn skills to maintain sober. PRN Motrin for for back pain, noted effective. Client last COWS 8 @ 2000. Client slept 9 hrs. [place] precaution rendered. Call light within reach
[2018-04-11 08:52] VITALS: BP 106/65
[2018-04-11] MEDS: ESCITALOPRAM OXALATE 10 MG TABLET PO SCH (09:00)
[2018-04-11] MEDS: GABAPENTIN 300 MG CAPSULE PO SCH ×3 (09:00→21:00)
[2018-04-11] MEDS: BUPRENORPHINE HCL 2 MG TAB.SUBL SL SCH ×3 (09:00→21:00)
--- NOTE | 2018-04-11 10:03 | NUR ---
Client became verbal abusive towards primary nurse. When primary nurse offered am medication for the third time, he stated, "What took you so long to bring them?" Nurse told client that he has requested for her to come back after he finish his breakfast, client responded by yelling, "Get the fuck out of it, you fucking cunt, lazy bitch, ugly shit." client stay in bed, 1:1 sitter at bedside. Nurse left room and notified CN.
--- NOTE | 2018-04-11 10:08 | NUR ---
Client refused am medications.CN notified
--- NOTE | 2018-04-11 10:20 | NUR ---
ENDORSEMENT Pt endorsed to me. All information received.
--- NOTE | 2018-04-11 10:20 | NUR ---
Endorse client for continuity of care to am nurse, all relevant information discuss. Client is in room, 1:1 sitter at bedside. Call light within client's reach.
[2018-04-11] MEDS ORDERED: BUPRENORPHINE HCL 2 MG TAB.SUBL SL ONE (11:30)
[2018-04-11] MEDS ORDERED: LORAZEPAM 1 MG TABLET PO PRN (11:30)
--- NOTE | 2018-04-11 11:39 | NUR ---
PRN Pt agitated and restless. Ativan po prn per MD order given and tolerated well. Pt was refusing ativan at first, stating," where's the xanax!? Ativan does not work on me! I don't want it!".
[2018-04-11 12:00] VITALS: BP 115/72
[2018-04-11 12:07] LABS: HEPATITIS B SURFACE AG Negative (Negative)
--- NOTE | 2018-04-11 14:48 | NUR ---
NSG ENTRY Pt in room on bed with 1:1 sitter. Pt with eyes closed resting. Was attempting to given medications that were due at 1500. Pt stated, " shut the fuck up! Shut up!". Will come back to attempt to administer medications.
[2018-04-11 16:00] VITALS: BP 130/84
--- NOTE | 2018-04-11 16:20 | NUR ---
MEDICATION LATE ADMINISTRATION Pt took medications late and was selective. Pt refused neurontin due at 1500. Pt kept waving wrist with ID wristband as I attempted to scan pt. Pt then kept laughing and continued to wave his wrist so I would not be able to scan his ID. After administering the subutex, pt kept placing hand over mouth and made a motion that seemed like he was spitting out the medication. Pt kept repeating this motion even after I asked pt not to cover his mouth with his hand. Advised pt that if he did not want the medication, he does not have to take it and he has every right to refuse. Continued checking SL subutex with another staff until it dissolved.
--- NOTE | 2018-04-11 18:40 | NUR ---
END OF SHIFT Pt 22 y/o male admitted for opiate withdrawal. Pt alert and oriented to name, place, and time. [place]. Skin warm and moist to touch. Respirations even and unlabored. Bilateral hand tremors noted. Pt with periods of agitation this afternoon. Pt resistive, verbally abusive, and argumentive throughout the afternoon. Pt appears disheveled. Dirt under fingernails of both hands noted. Pt malodorous. Empty bottles of water and clothes scattered throughout the room. Encouraged to maintain hygiene. Pt is on a 1:1 sitter for safety. Pt observed mostly in the room today. Pt did not attend group activity. Pt was seen by MD today. Pt medication compliant with prompting. No ASE noted. Pt is on a 4 day subutex taper and is on day 2. Cows= 10@0800, 9@1200, and 9@1600. Bed on lowest position with side rails x2 up for safety. Call light within reach.
--- NOTE | 2018-04-11 19:11 | NUR ---
Start of shift note Received report from day shift nurse. Pt is a 22 yo male, A+Ox4, presenting to [facility] for Opiate/Meth withdrawal. Pt noted to be anxious, agitated, restless, having sweats, and chills. Pt has HX of CVA, HTN, Asthma, Anxiety, Depression, and Bipolar disorder which will be monitored during shift. Pt is on 4 day Subutex taper, tolerated well. Respirations even and unlabored. Will continue to monitor.
[2018-04-11 20:55] VITALS: BP 127/82
[2018-04-11] MEDS: CLONIDINE HCL 0.1 MG TABLET PO SCH (21:00)
[2018-04-12 00:20] VITALS: BP 144/89
[2018-04-12 04:13] VITALS: BP 131/82
--- NOTE | 2018-04-12 05:37 | NUR ---
PRN Diclofenac PT c/o right knee pain 06/03 and requested for PRN Diclofenac. Medication given and tolerated well. Will reassess within 1 HR. Will continue to monitor. Addendum: 04/12/18 at 0539 by BIBIANA AGUERO LVN ERROR, INCORRECT PATIENT
--- NOTE | 2018-04-12 07:00 | NUR ---
End of shift note Pt was continuously noted with anxiety, agitation, restlessness, sweats, and chills. Pt remained in room, on 1:1 sitter for safety, for majority of shift except to get food from kitchen, to go smoke on smoking patio, and to interact with other patients in recreational room. Pt is on 4 day Subutex taper, tolerated well. Pt was not given any PRN medications during shift. Pt slept for a total of 8 HRS. Last COWS: 8 @0400. Respirations even and unlabored. Will endorse to day shift nurse.
[2018-04-12 08:00] VITALS: BP 133/70
--- NOTE | 2018-04-12 08:00 | NUR ---
START OF SHIFT: RECEIVED PT LAYING IN BED ASLEEP. 1:[address] BED SIDE[address] BED LOCKED AND LOW. CALL BREEN IN REACH. WILL ALLOW PT TO SLEEP AND ASSESS DURING MED ADMINISTRATION.
[2018-04-12] MEDS: CLONIDINE HCL 0.1 MG TABLET PO SCH ×3 (09:00→21:00)
--- NOTE | 2018-04-12 10:00 | NUR ---
COWS DEFERRED. MEDS HELD PT IA SLEEPING. EASILY AROUSED. PT HAS SLURRED SPEECH. WILL INFORM MD.
[2018-04-12] MEDS: ESCITALOPRAM OXALATE 10 MG TABLET PO SCH (11:25)
[2018-04-12] MEDS: GABAPENTIN 300 MG CAPSULE PO SCH ×3 (11:25→21:01)
[2018-04-12] MEDS: BUPRENORPHINE HCL 2 MG TAB.SUBL SL SCH ×3 (11:26→21:01)
--- NOTE | 2018-04-12 11:34 | NUR ---
SPEECH IS CLEAR. PT A/O X 4. APPROVED LATE ADMINISTRATION OF MEDICATION. COWS 8.SUBUTEX TAPER IN PROGRESS. HE C/O BODY ACHES,CHILLS,RESTLESSNESS AND IRRITABILITY. HE REFUSED CLONIDINE AND STATES"IT MAKES ME TOO SLEEPY". WILL CONTINUE TO MONITOR AND OFFER SUPPORT.
[2018-04-12] MEDS ORDERED: KETOROLAC TROMETHAMINE 30 MG INJ IM PRN (11:45)
[2018-04-12 12:00] VITALS: BP 129/63
[2018-04-12 16:00] VITALS: BP 139/76
--- NOTE | 2018-04-12 16:15 | NUR ---
PT REFUSED CLONIDINE AT 1500 AND STATES IT MAKES HIM TOO SLEEPY. HE ALSO REFUSED 1500 SUBUTEX AND STATES THAT IT ALSO MAKES HIM DROWSY. EDUCATED PT ON POTENTIAL CONSEQUENCES OF REFUSING MEDS. PT EXPRESSED VERBAL UNDERSTANDING OF EDUCATION.
[2018-04-12] MEDS: BACLOFEN 10 MG TABLET PO SCH (16:30)
[2018-04-12] MEDS ORDERED: DICY20TA28 PO (18:03)
[2018-04-12] MEDS ORDERED: CLON0.1T14 PO (18:03)
[2018-04-12] MEDS ORDERED: HYDR-3895 PO (18:03)
[2018-04-12] MEDS ORDERED: IBUP-1955 PO (18:03)
[2018-04-12] MEDS ORDERED: METH-406 PO (18:03)
[2018-04-12] MEDS ORDERED: GABA-534 PO ×2 (18:03)
--- NOTE | 2018-04-12 18:58 | NUR ---
END OF SHIFT: PT CONTINUES ON SUBUTEX TAPER TO MANAGE S/S OF W/D . HE IS ON 1:1 FOR UNSTEADY GAIT. HE USES W/C FOR AMBULATION . HE PRESENTS WITH IRRITABLE MOOD. HE REFUSED CLONIDINE X 2 AND 1500 SUBUTEX AND STATED IT MAKES HIM TOO DROWSY. CHARGE NURSE MADE AWARE. HE C/O BODY ACHES AND RESTLESSNESS. HE STATES SCHEDULE BACLOFEN IS EFFECTIVE IN REDUCING BODY ACHES. WILL PASS SHIFT REPORT TO ONCOMING NIGHT NURSE.
--- NOTE | 2018-04-12 19:30 | NUR ---
Start of Shift Note Received a 22 y/o male px, admitted for medically supervised withdrawal from Heroin and methamphetamine. Px is placed on 4 day Subutex taper started on 04/10/2018. Last reported COWS 8 by AM shift nurse. Px is still on 1 to 1 observation for unsteady gait. During the rounds at 1930, px is awake on bed in fowlers position eating snacks. Px appears disheveled, unshaven, odorous with dirty hands and finger nails. Px stated "I feel like shit. I can't scale my anxiety." Px complained of back pain of 6/10 and H/A 8/10. Bed on lowest position, side rails up 2x and call light within reach. We'll continue to monitor.
[2018-04-12 20:00] VITALS: BP 132/80
[2018-04-12] MEDS: ACETAMINOPHEN 325 MG TABLET PO PRN (21:00)
[2018-04-12] MEDS ORDERED: BACLOFEN 10 MG TABLET PO SCH (21:00)
--- NOTE | 2018-04-12 21:03 | NUR ---
Reassessment of heartburns Px stated that his heartburn improved. We'll continue to monitor.
--- NOTE | 2018-04-12 22:00 | NUR ---
Food hoarding A lot of drinks and snacks noted inside his room. 4 bottles of apple juice, 3 bottles of orange juice, 3 bottles of soda and different snacks are all over his bed side table and on top of cabinet. Px was told to finished 1st the food that he has inside his room before getting another set of drinks and snacks inside the kitchen. Px stated "Why? You are not paying for my food here! Don't tell me not to get anymore food!" Px was told that we are just following the protocol and rules about getting and collecting food. We'll continue to monitor.
--- NOTE | 2018-04-12 22:00 | NUR ---
Reassessment of H/A Px stated that his H/A improved to 4-/10. We'll continue to monitor.
--- NOTE | 2018-04-12 22:19 | NUR ---
PRN medications At 2100, Px received Tylenol 325 mg/tab, 2 tabs PO as PRN med for H/A. At 2102, Maalox 30 ml given PO for gas and heartburn as PRN med. At 2218, Px received Vistaril for high anxiety. We'll continue to monitor.
--- NOTE | 2018-04-12 23:19 | NUR ---
Reassessment of Anxiety Reassessment deferred due to the px is already asleep at the moment. We'll continue to monitor.
[2018-04-13] VITALS: BP 123/76
[2018-04-13 04:00] VITALS: BP 118/73
--- NOTE | 2018-04-13 04:00 | NUR ---
COWS deferred COWS deferred at 0000 and 0400 due to the px is asleep, to assess if the px is awake per doctor's order. We'll continue to monitor.
--- NOTE | 2018-04-13 07:15 | NUR ---
End of Shift Note During the shift at 2099, px received Tylenol 650 mg PO as PRN med for H/A of 8/10, it was effective. At 2102, Maalox 30 ml given PO as PRN med for heartburns, it was effective. At 2099, px was educated about the food hoarding, px was upset and agitated. At 2218, Vistaril 25 mg given PO as PRN med for high anxiety. Reassessment of anxiety deferred due to the px was asleep after an hour of administration of Vistaril. Pxs oral intake is 1,400 ml, voided 4x, BM 2x. Px slept for 7 hours. Last COWS 10. At 0630, px is asleep on bed in fowlers position. Bed on lowest position, side rails up 2x and call light within reach. We'll continue to monitor. Px is endorsed to AM shift nurse.
[2018-04-13 08:00] VITALS: BP 122/72
--- NOTE | 2018-04-13 08:20 | NUR ---
START OF SHIFT: RECEIVED PT A/O X 4. HE IS AMBULATORY WITH STEADY GAIT. 1:1 SITTER NOTED. HE PRESENTS WITH IRRITABLE MOOD AND CONGRUENT AFFECT. HE IS DISHEVELED AND ODOROUS. HIS ROOM IS UNKEMPT .SCATTERED FOOD AND CLOTHES ALL ABOUT. HE REPORTS BODY ACHES AND RESTLESSNESS. HE REFUSED SUBUTEX AND CLONIDINE THIS AM AND STATES 'IT MAKES ME FALL ASLEEP'. EXPLAINED POTENTIAL CONSEQUENCES OF NOT TAKING DETOX MEDS AND CLONIDINE. PT EXPRESSED VERBAL UNDERSTANDING OF EDUCATION. MADE AWARE. WILL CONTINUE TO MONITOR AND OFFER SUPPORT.
[2018-04-13] MEDS: CLONIDINE HCL 0.1 MG TABLET PO SCH ×3 (09:00→21:00)
[2018-04-13] MEDS ORDERED: BUPRENORPHINE HCL 2 MG TAB.SUBL SL SCH (09:00)
[2018-04-13] MEDS: ESCITALOPRAM OXALATE 10 MG TABLET PO SCH (09:17)
[2018-04-13] MEDS: BACLOFEN 10 MG TABLET PO SCH ×3 (09:17→21:00)
[2018-04-13] MEDS: GABAPENTIN 300 MG CAPSULE PO SCH ×3 (09:17→21:00)
[2018-04-13 12:00] VITALS: BP 95/60
[2018-04-13 16:00] VITALS: BP 108/73
--- NOTE | 2018-04-13 16:16 | NUR ---
HELD 1500 MEDS PT IS SLEEPING. HE IS EASILY AROUSABLE AND STATES"LEAVE ME ALONE ,I DON'T WANT MEDS,JUST WANT TO SLEEP".WILL CONTINUE TO MONITOR AND OFFER SUPPORT. Addendum: 04/13/18 at 1623 by LYNDSEY MCKEON RN [address]
--- NOTE | 2018-04-13 19:24 | NUR ---
END OF SHIFT: PT REFUSED LAST DOSE OF SUBUTEX THIS AM AND CLONIDINE. MADE AWARE. HE IS SCHEDULED FOR DISCHARGE IN AM. HIS GAIT IS STEADY.1 :1 DISCONTINUED THIS AM. HE PRESENTS WITH IRRITABLE MOOD. HE C/O BODY ACHES AND RESTLESSNESS. HE STATES SCHEDULED BACLOFEN IS EFFECTIVE IN REDUCING BODY ACHES. HE REFUSED 1500 MEDS AND WAS HALF SLEEPING IN BED. COWS DEFERRED AT 1600 NOON COWS 3. HE ATTENDED SOME GROUPS.WILL PASS SHIFT REPORT TO ONCOMING NIGHT NURSE.
--- NOTE | 2018-04-13 19:57 | NUR ---
START OF SHIFT NOTE Received report from outgoing nurse. Pt. is a 22 y/o male. Pt. is in room and is A/O to person, place, time, and purpose. Pt. presents w/ anxiety, restlessness, agitation, depressed mood, and flat affect. Pt. claims he has no s/s of withdrawal. Pt. refused his Subutex taper ear;ier in the day, MD notified and aware. Pt. denies S/I and H/I. Pt. received no PRN medications during previous shift. Last COWS 3 @ 1200. Call light within reach. Pt. will continue to be monitored and needs met.
[2018-04-13 20:09] VITALS: BP 114/66
[2018-04-14 00:07] VITALS: BP 118/68
--- NOTE | 2018-04-14 04:06 | NUR ---
RN NOTE Pt. deferred COWS and refused V/S. Pt. is in bed w/ his eyes closed. Pt.'s breathing is unlabored and even.
--- NOTE | 2018-04-14 07:16 | NUR ---
END OF SHIFT NOTE Endorsed Pt. to oncoming nurse. Pt. is a 22 y/o male. Pt. is in room and is A/O to person, place, time, and purpose. Pt. continues to present w/ anxiety, restlessness, agitation, depressed mood, and flat affect. Pt. claims he has no s/s of withdrawal. Pt. refused his scheduled medications of Gabapentene 600 mg, Clonidine 0.1 mg, and Baclophen 10 mg, noted in chart. Pt. denies S/I and H/I. Pt. received no PRN medications during shift. Pt.s fluid intake was 1700 ml. Pt. voided 4 times and slept for 7 hrs. Last COWS 4 @ 0000. Call light within reach.
--- NOTE | 2018-04-14 07:20 | NUR ---
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 HE HAS COMPLETED A 4 DAY SUBUTEX TAPER AND IS TO BE DISCHARGED THIS AFTERNOON. PATIENT IS AWAKE IN BED AT THIS TIME, NO COMPLAINTS. HE SLEPT FOR 7 HOURS, NO PRN MEDS REQUIRED OR REQUESTED ON PM SHIFT, LAST COWS 4 @ 0000. CONTINUE TO FOLLOW MD PLAN FOR DISCHARGE.
[2018-04-14 08:00] VITALS: BP 136/83
--- NOTE | 2018-04-14 08:51 | NUR ---
MEDICATION REFUSAL PATIENT REFUSED AM MEDS: CLONIDINE 0.1MG PO BACLOFEN 10MG PO LEXAPRO 10MG PO GABAPENTIN 300MG PO NON ADMINISTRATION NOTED ON eMAR
[2018-04-14] MEDS: CLONIDINE HCL 0.1 MG TABLET PO SCH (08:53)
[2018-04-14] MEDS: BACLOFEN 10 MG TABLET PO SCH (08:54)
[2018-04-14] MEDS: ESCITALOPRAM OXALATE 10 MG TABLET PO SCH (08:54)
[2018-04-14] MEDS: GABAPENTIN 300 MG CAPSULE PO SCH (08:54)
[2018-04-14 12:00] VITALS: BP 116/61
--- NOTE | 2018-04-14 15:31 | NUR ---
DISCHARGE NOTE: PATIENT HAS BEEN DISCHARGED TO " [facility]" VIA PRIVATE CAR " [facility] [facility]". ALL DC PAPERWORK HAS BEEN SIGNED AND DATED , ALL BELONGINGS AND PRESCRIPTIONS RETURNED TO PATIENT. VITAL SIGNS STABLE : BP 116/61, HR 79, RR 16, T 98.2, O2SATS 98%, LAST BM 04/14/18. PATIENT STATES NO SI/HI AT THIS TIME. PATIENT AMBULATED OFF THE UNIT AND WAS PICKED UP IN HOSPITAL LOBBY.
== END 2018-04-14 15:32 | disposition other institution (70) | DRG 895 ==
LOC: SRC 20:57
PROVIDERS: ADMIT Internal Medicine; ATTEND Internal Medicine
PROC: HZ2ZZZZ Detoxification Services for Substance Abuse Treatment (ICD-10-PCS; principal; 2018-04-09)
PROC: HZ51ZZZ Individual Psychotherapy for Substance Abuse Treatment, Behavioral (ICD-10-PCS; 2018-04-11)
DX: F11.23 Opioid dependence with withdrawal (principal); Z86.74 Personal history of sudden cardiac arrest; F15.259 Other stimulant dependence with stimulant-induced psychotic disorder, unspecified; I15.9 Secondary hypertension, unspecified; F33.1 Major depressive disorder, recurrent, moderate; F17.210 Nicotine dependence, cigarettes, uncomplicated; G47.00 Insomnia, unspecified; Z59.0 Homelessness; Z59.1 Inadequate housing; Z82.49 Family history of ischemic heart disease and other diseases of the circulatory system; Z91.89 Other specified personal risk factors, not elsewhere classified; F90.9 Attention-deficit hyperactivity disorder, unspecified type; Z79.899 Other long term (current) drug therapy; R73.9 Hyperglycemia, unspecified
CPT/HCPCS: 36415; 80307; 83735; 85025; 86592; 86705; 86803; 87340; 87806; G0480; Q0162